=== PATIENT | female | born 2005 | race Two or more races ===

== ENCOUNTER 2025-02-22 14:50 | Emergency (ER) | payer OTHER, SELFPAY ==
[~2025-02-22] VITALS: Ht 157.5 cm; Wt 54.2 kg
--- NOTE | 2025-02-22 15:59 | ED.PDOC ---
History of Present Illness HPI Comments 19 y/o F, presents to the ED for CC of headache. Patient states she accidently fell backwards off a chair while playing musical chairs yesterday (02/21/25), and woke up this morning (02/22/25) with a headache. Patient denies vision changes, nausea, vomiting, or dizziness. No other symptoms or modifying factors are present at this time. Chief Complaint: Headache Time Seen by MD: 15:55 Reviewed Notes: Nurses Notes, Medications, Allergies Allergies: Coded Allergies: Penicillins (Verified Allergy, Unknown, 02/22/25) Information Source: Patient Mode of Arrival: Ambulatory Severity: Moderate Timing: Days Duration: Since onset Prehospital treatment: None Past Medical History PAST MEDICAL HISTORY: Denies Surgical History: Denies all surgeries GARAGE MECHANIC History: Denies all GARAGE MECHANIC Hx Family History Family History: Unknown Social History Smoker: Non-Smoker Alcohol: Denies ETOH Use Drugs: Denies Drug Use Lives In: Home Constitutional: denies: chills, diaphoresis, fatigue, fever, malaise, sweats, weakness, others EENTM: denies: blurred vision, double vision, ear bleeding, ear discharge, ear drainage, ear pain, ear ringing, eye pain, eye redness, hearing loss, mouth pain, mouth swelling, nasal discharge, nose bleeding, nose congestion, nose pain, photophobia, tearing, throat pain, throat swelling, voice changes, others Respiratory: denies: cough, hemoptysis, orthopnea, SOB at rest, shortness of breath, SOB with excertion, stridor, wheezing, others Cardiovascular: denies: chest pain, dizzy spells, diaphoresis, Dyspnea on exertion, edema, irregular heart beat, left arm pain, lightheadedness, palpitations, PND, syncope, others Gastrointestinal: denies: abdomen distended, abdominal pain, blood streaked bowels, constipated, diarrhea, dysphagia, difficulty swallowing, hematemesis, melena, nausea, poor appetite, poor fluid intake, rectal bleeding, rectal pain, vomiting, others Genitourinary: denies: abnormal vagina bleeding, burning, dyspareunia, dysuria, flank pain, frequency, hematuria, incontinence, pain, , vagina discharg e, urgency, others Neurological: reports: headache; denies: dizziness, fainting, left sided numbness, left sided weakness, numbness, paresthesia, pre-existing deficit, right sided numbness, right sided weakness, seizure, speech problems, tingling, tremors, weakness, others Musculoskeletal: denies: back pain, gout, joint pain, joint swelling, muscle pain, muscle stiffness, neck pain, others Integumetry: denies: bruises, change in color, change in hair/nails, dryness, laceration, lesions, lumps, rash, wounds, others Allergic/Immunocompromised: denies: Difficulty Healing, Frequent Infections, Hives, Itching, others Hematologic/Lymphatic: denies: anemia, blood clots, easy bleeding, easy bruising, swollen glands, others Endocrine: denies: excessive hunger, excessive sweating, excessive thirst, excessive urination, flushing, intolerance to cold, intolerance to heat, unexplained weight gain, unexplained weight loss, others Psychiatric: denies: anxiety, bipolar disorder, depression, hopeless, panic disorder, schizophrenia, sleepless, suicidal, others All Other Systems: Reviewed and Negative Physical Exam General Appearance: No Apparent Distress, Normal HEENT: Normal ENT Inspection, Pharynx Normal Neck: Full Range of Motion, Non-Tender, Normal, Normal Inspection Respiratory: Chest Non-Tender, Lungs Clear, No Accessory Muscle Use, No Respiratory Distress, Normal Breath Sounds Cardiovascular: No Edema, No Murmur, No Gallop, Normal Peripheral Pulses, Regular Rate/Rhythm Breast Exam: Deferred Gastrointestinal: No Organomegaly, Non Tender, No Pulsatile Mass, Normal Bowel Sounds, Soft Genitalia: Deferred Pelvic: Deferred Rectal: Deferred Extremities: No calf tenderness, Normal capillary refill, Normal inspection, Normal range of motion, Non-tender, No pedal edema Musculoskeletal : Apperance: Normal Neurologic: Alert, splicer helper II-XII nml as Tested, No Motor Deficits, Normal Affect, Normal Mood, No Sensory Deficits Cerebellar Function: Normal Reflexes: Normal Skin: Dry, Normal Color, Warm Lymphatic: No Adenopathy Was a procedure done? Was a procedure done?: No Differential Dx Considerations may include: CONCUSSION, SCALP CONTUSION, SCALP LACERATION, INTRACRANIAL INJURIES, SKULL FRACTURE X-Ray, Labs, Meds, VS Vital Signs Date Time Temp Pulse Resp B/P (MAP) Pulse Ox O2 Delivery O2 Flow Rate FiO2 02/22/25 16:03 Room Air* 0 21 02/22/25 16:02 98.2 95 16 116/82 (93) 98 98.2 02/22/25 14:51 98.2 84 18 124/77 98 98.2 Time of 1ST Reevaluation: 16:25 Reevaluation 1ST: Unchanged Patient Education/Counseling: Diagnosis, Treatment, Prognosis, Need For Follow Up Family Education/Counseling: Diagnosis, Treatment, Prognosis, Need For Follow Up Comments THIS IS A PATIENT WHO HAD A MECHANICAL FALL FROM A SEATED POSITION HIT THE BACK OF THE HEAD YESTERDAY. SHE HAD NO LOSS OF CONSCIOUSNESS. SHE HAS NO NAUSEA VOMITING DIZZINESS OR CONFUSION. HOWEVER STILL HAS PAIN IN THE BACK OF THE SCALP WHERE SHE STRUCK THE FLOOR. ON EXAMINATION THERE IS NO HEMATOMA, LACERATION, AND ONLY MILD TENDERNESS. THERE IS NO CERVICAL SPINE TENDERNESS. I HAD A DISCUSSION WITH HER AND HER MOTHER REGARDING THE RISKS AND BENEFITS OF GETTING A CAT SCAN VERSUS WITHOUT. THEY OPTED NOT TO HAVE THE CAT SCAN. THE SYMPTOMS ARE NOT SEVERE. SHE WILL BE DISCHARGED TO HOME AND INSTRUCTED TO RETURN TO THE ER IF SHE CHANGES HER MIND ABOUT THE CAT SCAN OR HAS ANY CONCERNS. SEPSIS Sepsis Screen Date sepsis recognized/suspect: Feb 22, 2025 Time Sepsis recognized/suspect: 1450 Recent Procedure: No Respiratory Rate >20: No Heart Rate >90: No Temp<36 C (96.8 F) or >38.3 C: No SBP <90 or MAP <65 mmHG: No New Acute Mental Status Change: No Is the patient on CPAP, BIPAP,: No Vital Signs Date Time Temp Pulse Resp B/P (MAP) Pulse Ox O2 Delivery O2 Flow Rate FiO2 02/22/25 16:03 Room Air* 0 21 02/22/25 16:02 98.2 95 16 116/82 (93) 98 98.2 02/22/25 14:51 98.2 84 18 124/77 98 98.2 Departure 1 Departure Time of Disposition: 16:10 Impression: Primary Impression: Closed head injury Disposition: 01 HOME / SELF CARE / HOMELESS Condition: Good Additional Instructions: PLEASE STAY OUT OF WORK FOR THE NEXT TWO DAYS TO REST. RETURN TO THE EMERGENCY ROOM FOR ANY ADDITIONAL CONCERNS. Discharged With: Self, Relative (Mother) Critical Care Note Critical Care Time?: No Stability Stability form required: No Heart Score Heart Score: Heart Score Response (Comments) Value History N/A 0 EKG N/A 0 Age N/A 0 Risk Factors N/A 0 Troponin N/A 0 Total 0 I personally scribed for JO-ANN KEBEDE MD ([email or web address]) on 02/22/25 at 15:59. Electronically submitted by Alina Louise ([email or web address]). JO-ANN KEBEDE MD Feb 22, 2025 15:59
[2025-02-22 16:02] VITALS: BP 116/82; PULSE 95; RESP 16; TEMP 98.2; O2SAT 98
== END 2025-02-22 16:30 | disposition home or self-care (01) ==
LOC: ER 14:50
DX: S09.8XXA Other specified injuries of head, initial encounter (principal); Z53.21 Procedure and treatment not carried out due to patient leaving prior to being seen by health care provider; Z88.0 Allergy status to penicillin; W07.XXXA Fall from chair, initial encounter; Y93.89 Activity, other specified; Y92.89 Other specified places as the place of occurrence of the external cause; Y99.8 Other external cause status